=== PATIENT | female | born 1995 | race Caucasian/White ===

== ENCOUNTER 2020-10-05 15:42 | Emergency (ER) | payer OTHER ==
[~2020-10-05 15:42] MED LIST: IBUPROFEN600 MG PO; IBUPROFEN800 MG PO; MACROBID 100 M100 MG PO; PRENATAL TABLE1 EAC2 PO; SPRINTEC 28 DA1 EACH PO; ZITHROMAX250 MG PO; ZOFRAN4 MG PO
[2020-10-05] MEDS ORDERED: AMOXICILLIN500 M1 PO (16:16)
[2020-10-05] MEDS ORDERED: IBUPROFEN800 MG PO (16:16)
== END 2020-10-05 16:55 | disposition home or self-care (01) ==
LOC: ER1 15:42
DX: K02.9 Dental caries, unspecified (principal); K11.20 Sialoadenitis, unspecified; K05.10 Chronic gingivitis, plaque induced; F17.200 Nicotine dependence, unspecified, uncomplicated; Z88.5 Allergy status to narcotic agent; Z88.8 Allergy status to other drugs, medicaments and biological substances
CPT/HCPCS: 99282

== ENCOUNTER 2020-11-01 22:52 | Emergency (ER) | payer OTHER ==
[~2020-11-01 22:52] MED LIST changes: +AMOXICILLIN500 M1 PO
[2020-11-02] MEDS ORDERED: BACTRIM DS TAB1 EACH PO (01:12)
[2020-11-02] MEDS ORDERED: KEFLEX CAP 250250 MG PO (01:12)
== END 2020-11-02 01:49 | disposition home or self-care (01) ==
LOC: ER1 22:52
DX: L02.214 Cutaneous abscess of groin (principal); Z88.5 Allergy status to narcotic agent; Z88.8 Allergy status to other drugs, medicaments and biological substances; F17.210 Nicotine dependence, cigarettes, uncomplicated
CPT/HCPCS: 10060; 87070; 87077; 87186; 99282

== ENCOUNTER 2021-11-26 02:05 | Emergency (ER) | payer OTHER ==
[~2021-11-26 02:05] MED LIST changes: +BACTRIM DS TAB1 EACH PO; +KEFLEX CAP 250250 MG PO
[2021-11-26] MEDS ORDERED: BACTRIM DS TAB1 EACH PO (03:16)
[2021-11-26] MEDS ORDERED: CEPHALEXIN500 MG PO (03:16)
== END 2021-11-26 03:20 | disposition home or self-care (01) ==
LOC: ER1 02:05
DX: L98.9 Disorder of the skin and subcutaneous tissue, unspecified (principal); F17.200 Nicotine dependence, unspecified, uncomplicated; Z88.8 Allergy status to other drugs, medicaments and biological substances
CPT/HCPCS: 99283

== ENCOUNTER 2021-12-12 18:48 | Emergency (ER) | payer OTHER ==
[~2021-12-12 18:48] MED LIST changes: +CEPHALEXIN500 MG PO
== END 2021-12-12 20:45 | disposition home or self-care (01) ==
LOC: ER1 18:48
DX: J02.9 Acute pharyngitis, unspecified (principal); F17.200 Nicotine dependence, unspecified, uncomplicated; Z20.822 Contact with and (suspected) exposure to COVID-19; Z88.5 Allergy status to narcotic agent
CPT/HCPCS: 0240U; 87081; 87880; 99283